=== PATIENT | male | born 1995 | race Caucasian/White ===

== ENCOUNTER 2019-12-01 22:10 | Emergency (ER) | payer OTHER ==
[~2019-12-01] VITALS: Ht 167.6 cm; Wt 61.2 kg
[2019-12-01] MEDS ORDERED: SEROQUEL400 MG PO (22:31)
[2019-12-01] MEDS ORDERED: XANAX1 MG PO (22:32)
[2019-12-01] MEDS ORDERED: XANAX 1 MG TABLE1 MG PO (23:01)
[2019-12-01 23:05] VITALS: BP 147/95
== END 2019-12-01 23:07 | disposition home or self-care (01) ==
LOC: M.ERS 22:10
DX: F41.9 Anxiety disorder, unspecified (principal); Z76.0 Encounter for issue of repeat prescription